=== PATIENT | male | born 1960 | race Caucasian/White ===

== ENCOUNTER 2016-10-02 11:40 | Emergency (ER) | payer MEDICAID ==
[~2016-10-02] VITALS: Ht 172.7 cm; Wt 90.7 kg
[2016-10-02 11:45] VITALS: BP 132/87; PULSE 119; RESP 20; TEMP 97.7; O2SAT 96
--- NOTE | 2016-10-02 11:45 | NUR ---
Patient triaged and placed in waiting room. VSS and patient appears in no acute distress at this time. Accompanied by SELF, awaiting available bed, and MD notified of need for MSE.
--- NOTE | 2016-10-02 12:20 | NUR ---
DR SORENSON EVALUATING PT IN TRIAGE ROOM.
[2016-10-02 12:58] VITALS: BP 121/81; PULSE 87; RESP 19; TEMP 97.2; O2SAT 99
--- NOTE | 2016-10-02 12:58 | NUR ---
Patient given written and verbal discharge instructions and verbalizes understanding. ER MD discussed with patient the results and treatment provided. Given copies of tests performed in ER. Patient in stable condition. ID arm band removed. Rx of MOTRIN, ALBUTEROL, AUGMENTIN given. Patient educated on pain management and to follow up with PMD. Pain Scale 0/10. Opportunity for questions provided and answered.
== END 2016-10-02 12:58 | disposition home or self-care (01) ==
LOC: SED 11:40
DX: J40 Bronchitis, not specified as acute or chronic (principal)
CPT/HCPCS: 71020-TC; 93005; 99284